=== PATIENT | female | born 1955 | race Caucasian/White ===

== ENCOUNTER 2019-11-16 13:07 | Outpatient (CLI) | payer OTHER, SELFPAY ==
--- NOTE | ~2019-11-16 | DEXA_ITS ---
Bone Density Report Name: Ernsetine Ramos Age: 64 Sex: Female Ethnicity: White Date of : 1955 Indication: postmenopausal; height loss; prior fracture; Referring Provider: Brynn, Claudette Study: Bone densitometry was performed. Exam Date: November 16, 2019 Accession number: [id number] Bone Density: Region BMD T-score Z-score Classification AP Spine (L1-L4) 0.940 -1.0 0.7 Normal Femoral Neck (Left) 0.678 -1.5 -0.1 Osteopenia Total Hip (Left) 0.961 0.2 1.3 Normal Total Hip Bilateral Avg 0.965 0.2 1.4 Normal Femoral Neck (Right) 0.726 -1.1 0.4 Osteopenia Total Hip (Right) 0.968 0.2 1.4 Normal World Health Organization criteria for BMD impression classify patients as: Normal (T-score at or above -1.0), Osteopenia (T-score between -1.0 and -2.5), or Osteoporosis (T-score at or below -2.5). 10-year Fracture Risk(1): Major Osteoporotic Fracture 14% Hip Fracture 1.4% Reported Risk Factors: [place] (), Neck BMD=0.678, BMI=31.5, previous fracture (1) FRAX(R) Version 3.08. Fracture probability calculated for an untreated patient. Fracture probability may be lower if the patient has received treatment. Previous Exams: Region Exam Age BMD T-score BMD Change BMD Change Date g/cm2 vs Baseline vs Previous AP Spine(L1-L4) 11/16/2019 64 0.940 -1.0 0.056(6.4%)# 0.006(0.6%)# 04/15/2009 53 0.934 -1.0 0.051(5.7%)* 0.051(5.7%)* 04/18/2007 51 0.883 -1.5 Total Hip(Left) 11/16/2019 64 0.961 0.2 0.047(5.2%)# 0.035(3.8%)# 04/15/2009 53 0.926 -0.1 0.012(1.4%) 0.012(1.4%) 04/18/2007 51 0.913 -0.2 Total Hip(Right) 11/16/2019 64 0.968 0.2 0.085(9.6%)# 0.086(9.8%)# 04/15/2009 53 0.882 -0.5 -0.001(-0.2%) -0.001(-0.2%) 04/18/2007 51 0.883 -0.5 *Denotes significance at 95% confidence level, LSC for AP Spine = 0.022 g/cm2, LSC for Total Hip = 0.027 g/cm2 Clinical Information Provided by Patient: Has had a low trauma fracture Has used the following medications: Vitamin D, Calcium Patient maximum height was 68 Menopause Age: 47 No regular weight bearing exercise Drinks caffeinated beverages Onset of menses at age 11 Number of children 3 Impression: The patient has low bone mass, based on the Left Femoral Neck T-score. The patient has an estimated ten-year risk of hip fracture of 1.4% and an estimated ten-year risk of major fracture of 14%, based on the WHO FRAX algorithm. The
--- NOTE | ~2019-11-16 | MMUS_ITS ---
EXAMINATION: MM diagnostic edgardo BI w bharath, US breast LT limited HISTORY: Palpable lump lumps of the upper left breast TECHNIQUE: Craniocaudal, mediolateral, and mediolateral oblique 3-D tomosynthesis images of the left breast were performed and synthetic 2-D images were generated. CAD analysis was submitted and interpr eted. High resolution limited left breast ultrasound was performed. COMPARISON: 05/17/2017, 01/27/2015, 11/12/2014, 11/05/2013 BREAST PARENCHYMAL COMPOSITION: The breasts are heterogeneously dense, which may obscure small masses . FINDINGS: MAMMOGRAPHIC FINDINGS: There is no evidence of suspicious mass, calcification, or architectural distortion in either breast to suggest malignancy. There has been no suspicious interval change. There are several cysts of the left breast which demonstrate decrease in size, including a 2 cm cyst of the upper inner breast vale esponding to one palpable area. No definite mass is seen in the upper outer breast. ULTRASOUND: There is a 2.2 x 0.9 cm cyst at the 10:00 location 2 cm from the nipple corresponding to the palpable abnormality of concern of the inner breast. No mass is identified in the upper outer breast. IMPRESSION: 1. Left breast cyst corresponding to the palpable abnormality of concern of the upper inner breast. N o mammographic or sonographic evidence of malignancy. 2. Recommend routine screening mammography in one year. BI-RADS Category 2: Benign finding(s). Reviewed, dictated and finalized at location A. IMPRESSION: 1. Left breast cyst corresponding to the palpable abnormality of concern of the upper inner breast. No mammographic or sonographic evidence of malignancy. 2. Recommend routine screening mammography in one year. BI-RADS Category 2: Benign finding(s).
== END 2019-11-16 13:08 | disposition home or self-care (01) ==
LOC: ANHIMG 13:15
PROVIDERS: Visit Provider Nurse Practitioner
DX: N63.20 Unspecified lump in the left breast, unspecified quadrant (principal); Z78.0 Asymptomatic menopausal state; M85.852 Other specified disorders of bone density and structure, left thigh; M85.851 Other specified disorders of bone density and structure, right thigh
CPT/HCPCS: 76642; 77062; 77066; 77080; G0279